=== PATIENT | female | born 1995 | race Caucasian/White ===

== ENCOUNTER 2018-02-14 07:36 | Emergency (ER) | payer BC ==
[2018-02-14] MEDS ORDERED: Metoclopramide 10 MG/10 ML UDCUP ONE (07:57)
[2018-02-14] MEDS ORDERED: diphenhydrAMINE 50 MG/ML VIAL ONE (07:57)
[2018-02-14] MEDS ORDERED: Metoclopramide HCl 10 MG/2 ML VIAL ONE (07:58)
--- NOTE | 2018-02-14 09:18 | CT ---
BRAIN CT WITHOUT IV CONTRAST: History: 22-year-old female with history of headache. Comparison: 11-03-13 FINDINGS: No mass or midline shift. No intra or extraaxial hemorrhage. Sinuses and mastoids are clear. IMPRESSION: No acute intracranial process. No mass or bleed. POS: OFF
[2018-02-14] MEDS ORDERED: Diazepam 5 MG TAB ONE (09:47)
== END 2018-02-14 10:53 | disposition home or self-care (01) ==
LOC: ERS 07:36
DX: R51 Headache (principal)
CPT/HCPCS: 70450; 96365; 96375; J1200; J2765

== ENCOUNTER 2019-02-12 06:59 | Emergency (ER) | payer BC ==
[2019-02-12 07:53] LABS: #Eosinphils 0.3 thou/uL (0.0-0.7); #Lymphocytes 2.8 thou/uL (1.20-3.40); #Monocytes 0.5 thou/uL (0.11-0.59); #Neutrophils 6.2 thou/uL (1.40-6.50); %Basophils 0.4 % (0.0-1.0); %Eosinophils 2.8 % (0.0-10.0); %Lymphocytes 28.4 % (21.0-51.0); %Monocytes 5.4 % (0.0-10.0); Hemoglobin 14.6 g/dL (12.0-16.0); Mean Corpuscular HGB CONC 33.4 g/dL (32.0-36.0); Mean Corpuscular Hemoglobin 29.5 pg (27.0-31.0); Mean Corpuscular Volume 88.3 fL (78.0-98.0); Mean Platelet Volume 7.6 fL (7.4-10.4); Platelet Count 277 thou/uL (130-400); RBC Distribution Width 11.7 % (11.5-14.5); Red Blood Cell (RBC) Count 4.94 mill/uL (4.20-5.40); White Blood Cell (WBC) Count 9.9 thou/uL (4.8-10.8)
[2019-02-12 08:02] LABS: BHCG - Serum Negative (NEGATIVE); Pregs Control Background? CLEAR/WHITE (CLR/WHITE); Pregs Control Bar Appear? YES (CONTROL BAR)
[2019-02-12 08:13] LABS: ALT (SGPT) 7 U/L (8-55); AST (SGOT) 10 U/L (5-34); Albumin 3.9 g/dL (3.5-5.0); Alkaline Phosphatase 76 U/L (40-150); Anion Gap 12 mmol/L (10-20); BUN (Urea Nitrogen) 12 mg/dL (7.0-18.7); Bilirubin, Total 0.3 mg/dL (0.2-1.2); Calc. Creatinine Clearance 0 mL/min (70-130); Carbon Dioxide 22 mmol/L (22-29); Chloride 107 mmol/L (98-107); Estimated GFR-MDRD Greater than 90; Globulin 3.2 g/dL (2.4-3.5); Glucose 102 mg/dL (70-105); Potassium 3.6 mmol/L (3.5-5.1); Protein, Total 7.1 g/dL (6.0-8.3); Sodium 137 mmol/L (136-145)
--- NOTE | 2019-02-12 09:26 | RAD ---
CHEST 2 VIEWS: HISTORY: Persistent cough. COMPARISON: 06/14/2013 study. FINDINGS: Heart size and mediastinum are within normal limits. The lungs are clear of infiltrates. No signifi cant bony findings. IMPRESSION: No active intrathoracic disease. POS: [facility]
== END 2019-02-12 09:08 | disposition home or self-care (01) ==
LOC: ERS 06:59
DX: J20.9 Acute bronchitis, unspecified (principal); F32.9 Major depressive disorder, single episode, unspecified; Z79.899 Other long term (current) drug therapy
CPT/HCPCS: 36415; 71046; 80053; 83880; 84703; 85025; 85379; 94640

== ENCOUNTER 2020-06-21 12:53 | Day surgery (SDC) | payer BC, OTHER ==
[2020-06-21 13:48] VITALS: BMI 39.7
[2020-06-21] MEDS ORDERED: hydrALAZINE 20 MG/ML VIAL SLOW IVP PRN (14:18)
--- NOTE | 2020-06-21 15:06 | ULT ---
US Biophysical Profile: 06/21/2020 2:30 PM CLINICAL HISTORY: Decreased movement at 24 weeks gestational age. COMPARISON: None. FINDINGS: heart rate: 150 bpm. PUJA: 14.5 cm Biophysical profile: 8 of 8 IMPRESSION: Normal biophysical profile
--- NOTE | 2020-06-21 20:51 | SS ---
DATE OF ADMISSION: 06/21/2020 DATE OF DISCHARGE: 06/21/2020 REGULAR PHYSICIAN: Wyatt Tavarez MD. EVALUATING PHYSICIAN: Kunal Rowe MD CHIEF COMPLAINT: Decreased movement. HISTORY OF PRESENT ILLNESS: Ms. Sampson is a 24-year-old, G1, P0, with an estimated date of confinement of 10/08/2020, who presents complaining of decreased movement over the last 24 to 48 hours. She denies associated rupture of membranes or vaginal bleeding. Her care has been with Dr. Tavarez without reported complications. PAST MEDICAL HISTORY: None. PAST SURGICAL HISTORY: None. CURRENT MEDICATIONS: vitamins. ALLERGIES: NO KNOWN ALLERGIES. SOCIAL HISTORY: Denies tobacco, alcohol, or drug use. FAMILY HISTORY: Unremarkable. REVIEW OF SYSTEMS: Denies nausea, vomiting, fever, chills, ruptured membranes, or vaginal bleeding. PHYSICAL EXAMINATION: VITAL SIGNS: In triage, her vital signs are stable and she is afebrile. GENERAL: She is pleasant and in no acute distress. ABDOMEN: Soft, nontender, and gravid. PELVIC: Deferred. heart rate tracing is stable. No decelerations are seen. No uterine contractions are noted. Biophysical profile was performed and returns 03/02. ASSESSMENT: 1. A 24 and 3/7 weeks' intrauterine . 2. Reassuring testing today. PLAN: The patient will be dismissed to home. Prior to discharge, she reported movement noted. She was reassured regarding her testing today and will follow up for her next scheduled visit with Dr. Tavarez. Job ID: [id number]
== END 2020-06-21 15:20 | disposition home or self-care (01) ==
LOC: L&D/OP 12:53
PROVIDERS: ATTEND Family Medicine
DX: O36.8120 Decreased fetal movements, second trimester, not applicable or unspecified (principal); Z3A.24 24 weeks gestation of pregnancy
CPT/HCPCS: 76819

== ENCOUNTER 2020-07-05 22:20 | Day surgery (SDC) | payer BC, OTHER ==
[2020-07-05] MEDS ORDERED: hydrALAZINE 20 MG/ML VIAL SLOW IVP PRN (22:37)
--- NOTE | 2020-07-05 22:43 | PDOC.FPROB ---
FMR OB H&P: HPI - History of Present Illness Chief Complaint: Fall prior to arrival History of Present Illness: 24 y/o # 26.5 weeks presents to L&D after a fall prior to arrival. Pt slipped on her r leg in a wet spot and landed on her L knee. She states her knee does not hurt or have any other pain. She states she remembers Dr. Tavarez to come to L&D with any falls due to her Rh Negative status. Pt denies any complications to this Denies LOF, CTX, vaginal bleeding Primary Care Physician: Corby FMR OB H&P: Current - Care : 1 Para: 0 Gestational age: 26.5 Course/Complications: no known complications - OB Labs Blood type: O RH: negative FMR OB H&P: History - Past Medical History PMH: cardiac arrhythmia, stopped taking Corlanor before , not on this currently. Taken off by rat trapper for - OB History OB History: First - Surgical History Sx History: No surgeries - Social History Social History: Denies etoh, tobacco and drug use. - Family History Family History: non-contributory FMR OB H&P: Medications - Current Home Medications: Medication Instructions Recorded Confirmed Type Aspirin [Adult Low Dose Aspirin EC] 81 mg PO DAILY 06/21/20 07/05/20 History Vitamin 1 tablet PO DAILY 06/21/20 07/05/20 History Allergies/Adverse Reactions: Allergies Allergy/AdvReac Type Severity Reaction Status Date / Time No Known Allergies Allergy Verified 07/05/20 22:42 FMR OB H&P: ROS - Review of Systems General: denies: fever/chills, weight/appetite/sleep changes Eyes: denies: eye pain, vision changes ENT: denies: nasal congestion, sore throat Cardiovascular: denies: chest pain, palpitation, edema Respiratory: denies: cough, shortness of breath Gastrointestinal: denies: abdominal pain, nausea, vomiting Genitourinary (Female): denies: incontinence, vaginal discharge, vaginal pain, vaginal bleeding, contractions Musculoskeletal: reports: other (recent fall onto L knee, no current pain). denies: pain, stiffness, tenderness, redness, swelling, decrease range of motion, arthritis/arthralgias Neurologic: denies: syncope, weakness Integumentary: denies: rash Hematologic/Lymphatic: reports: other (o negative blood type). denies: prolonged or excessive bleeding FMR OB H&P: Vital Signs - Maternal Vital signs: BP 126/67 HR 92 temp 98.4 F - Heart Tones Baseline: 140 Variability: moderate FMR OB H&P: Physical Exam - Physical Exam General: NAD, awake, alert and oriented HEENT: normocephalic and atraumatic, PERRLA, EOMI, MMM Neck: trachea midline, no JVD Chest: non-tender to palpation, no lesions Breast: symmetric Heart: RRR, normal S1/S2, no murmurs/rubs/gallops, pulses present, no edema General: CTAB, no respiratory distress, good air movement, no rales/rhonchi, no wheezing, no retractions Abdomen: soft, gravid, non-tender, bowel sound present Musculoskeletal: normal gait and station, pulses present, FROM in all four extremities, no misalignment/asymmetry, no atrophy, other (no TTP of knees) Neurological: cranial nerves II through XII intact, sensation to pain,touch and proprioception grossly normal, no clonus, no tremor, no focal deficit Skin: no rash, good tugor, capillary refill <2 seconds Deviation from normal: old bruise over L lateral lower leg. Lymphatic: no unusual bruising or bleeding, no purpura Psychiatric: intact recent and remote memory, good judgement and insight, normal mood and affect FMR OB H&P: A/P - Problem List (1) 26 weeks gestation of Current Visit: Yes Status: Acute Code(s): Z3A.26 - 26 WEEKS GESTATION OF (2) Fall from ground level Current Visit: Yes Status: Acute Code(s): W18.30XA - FALL ON SAME LEVEL, UNSPECIFIED, INITIAL ENCOUNTER Discussion: Date/Time: 07/05/20 2242 24 y/o @ 26.5 weeks gestation presents to L&D after a fall onto her left knee with concerns. 1. sIUP @ 26.5 weeks gestation - toco and FHT monitoring. - O negative blood type 2. Fall onto L knee, without pain - Pt blood type O negative and this made her concerned after a fall, even though very minor and no trauma. No plan to give rhogam at this time as no trauma was sustained per report from pt. - will monitor fetus - anticipate d/c home with f/u with PCP 3. Hx of cardiac arrhythmia - fall was mechanical in nature - off medications and under the care of cardiology - RRR on exam with no M/G/R. This H&P was discussed with Dr. oNbles who agree with the above documentation and plan. Addendum - Attending - Attending Attestation Date/Time: 07/08/20 [id number] I personally evaluated the patient and discussed the management with Dr. Perea I agree with the History, Examination, Assessment and Plan documented above with any addition or exceptions noted below. Pt has no complaints. This is her first . No abdominal trauma. No contractions or pain. Fetus has a reassuring fht for gestational age. Pt discharged home.
[2020-07-05 22:45] VITALS: BMI 39.9
--- NOTE | 2020-07-05 23:45 | PDOC.BPN ---
- Brief Progress Note pt observed on fht monitoring strip baseline 140 with moderate variability. d/c home with reassuring status. f/u with pcp no rhogam indicated
== END 2020-07-05 23:20 | disposition home or self-care (01) ==
LOC: L&D/OP 22:20
PROVIDERS: ATTEND Family Medicine
DX: Z04.3 Encounter for examination and observation following other accident (principal); O99.413 Diseases of the circulatory system complicating pregnancy, third trimester; I49.9 Cardiac arrhythmia, unspecified; Z3A.26 26 weeks gestation of pregnancy; W01.0XXA Fall on same level from slipping, tripping and stumbling without subsequent striking against object, initial encounter
CPT/HCPCS: 99282

== ENCOUNTER 2022-03-25 14:30 | Outpatient (CLI) | payer OTHER | END 2022-03-25 14:31 | disposition home or self-care (01) | LOC: ULT 14:30 | PROVIDERS: ATTEND Nurse Practitioner Women's Health | DX: T83.32XA Displacement of intrauterine contraceptive device, initial encounter (principal) | CPT/HCPCS: 76856 ==

== ENCOUNTER 2022-08-10 02:16 | Emergency (ER) | payer OTHER ==
[2022-08-10 02:53] LABS: #Eosinphils 0.1 thou/uL (0.0-0.7); #Lymphocytes 2.8 thou/uL (1.20-3.40); #Monocytes 0.7 thou/uL (0.11-0.59); %Basophils 0.3 % (0.0-1.0); %Eosinophils 1.1 % (0.0-10.0); %Lymphocytes 29.2 % (21.0-51.0); %Monocytes 7.3 % (0.0-10.0); %Neutrophils 62.1 % (42.0-75.0); Hemoglobin 14.2 g/dL (12.0-16.0); Mean Corpuscular HGB CONC 35.2 g/dL (32.0-36.0); Mean Corpuscular Hemoglobin 30.4 pg (27.0-31.0); Mean Corpuscular Volume 86.3 fl (78.0-98.0); Mean Platelet Volume 8.1 fL (7.4-10.4); Platelet Count 256 10x3/uL (130-400); RBC Distribution Width 11.8 % (11.5-14.5); Red Blood Cell (RBC) Count 4.68 mill/uL (4.20-5.40); White Blood Cell (WBC) Count 9.7 10x3/uL (4.8-10.8)
[2022-08-10 03:01] LABS: BHCG - Serum Negative (NEGATIVE); Pregs Control Background? CLEAR/WHITE (CLR/WHITE); Pregs Control Bar Appear? YES (CONTROL BAR)
[2022-08-10 03:09] LABS: ALT (SGPT) 7 U/L (8-55); AST (SGOT) 13 U/L (5-34); Albumin 4.2 g/dL (3.5-5.0); Alkaline Phosphatase 107 U/L (40-110); Anion Gap 12 mmol/L (10-20); BUN (Urea Nitrogen) 12 mg/dL (7.0-18.7); Bilirubin, Total 0.4 mg/dL (0.2-1.2); Calc. Creatinine Clearance 0 mL/min (70-130); Calcium 8.8 mg/dL (7.8-10.44); Carbon Dioxide 21 mmol/L (22-29); Chloride 108 mmol/L (98-107); Estimated GFR 123; Globulin 2.7 g/dL (2.4-3.5); Glucose 103 mg/dL (70-105); Potassium 3.7 mmol/L (3.5-5.1); Protein, Total 6.9 g/dL (6.0-8.3); Sodium 137 mmol/L (136-145)
== END 2022-08-10 05:09 | disposition home or self-care (01) ==
LOC: ERS 02:16
DX: R07.9 Chest pain, unspecified (principal); R20.2 Paresthesia of skin
CPT/HCPCS: 36415; 71045; 80053; 84484; 84703; 85025; 93005

== ENCOUNTER 2023-05-25 20:05 | Emergency (ER) | payer OTHER ==
[2023-05-25] MEDS ORDERED: Acetaminophen 500 MG TAB ONE (20:24)
== END 2023-05-25 21:05 | disposition home or self-care (01) ==
LOC: ERS 20:05
DX: M23.91 Unspecified internal derangement of right knee (principal); W18.30XA Fall on same level, unspecified, initial encounter
CPT/HCPCS: 29505